=== PATIENT | male | born 1985 | race Caucasian/White ===

== ENCOUNTER 2017-02-04 19:32 | Emergency (ER) | payer BC, OTHER ==
[~2017-02-04] VITALS: Ht 190.5 cm; Wt 170.1 kg
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
[2017-02-04] MEDS ORDERED: FENO160T12 (19:55)
[2017-02-04] MEDS ORDERED: ARIP2TAB11 (19:55)
[2017-02-04] MEDS ORDERED: METF500T8 (19:55)
[2017-02-04] MEDS ORDERED: PHENTERMINE (19:55)
[2017-02-04] MEDS ORDERED: LAMO150T (19:55)
[2017-02-04] MEDS ORDERED: TRAZODONE (19:55)
[2017-02-04] MEDS ORDERED: LITH600C (19:55)
[2017-02-04] MEDS ORDERED: ALLO100T (19:55)
[2017-02-04] MEDS ORDERED: LEVO25TA5 (19:55)
[2017-02-04] MEDS ORDERED: TRAZ100T92 (19:55)
--- NOTE | 2017-02-04 20:12 | Diagnostic Imaging Report ---
INDICATION: Injury to right ankle AP, oblique, and lateral views of the right ankle obtained at 8:14 p.m. There is an acute comminuted fracture of the medial malleolus of the distal tibia with vertical and horizontal components. There is a fracture of the posterior malleolus of the distal tibia as well. There is no significant malalignment. A fracture is visualized in the fibular shaft, partially seen on this study. There is plantar and posterior calcaneal spurring. IMPRESSION: Comminuted fracture of the medial malleolus of the distal tibia. There is also a posterior malleolar fracture of the distal tibia. There is a distal fibular shaft fracture. There is no dislocation. Dictated by: Dictated on workstation # [id number]
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
[2017-02-04] MEDS ORDERED: oxyCODONE/APAP 5/325MG (PERCOCET 5) TABLET PO ONE (20:15)
--- NOTE | 2017-02-04 21:53 | Diagnostic Imaging Report ---
INDICATION: Right ankle fractures. EXAMINATION: CT of the right ankle was obtained with axial slices, without IV contrast, and sagittal and coronal reconstructions. FINDINGS: There is a comminuted fracture of the mid fibular shaft without significant malalignment. The distal fibula appears intact. There is a comminuted fracture of the distal tibia with horizontal and vertical components involving the medial malleolus, as well as a posterior malleolar fracture. The talus appears intact. There appear to be some small bony fragments in the ankle joint, posteriorly. There is an accessory ossicle posterior to the talus. IMPRESSION: Mid shaft comminuted fibular fracture without significant angulation. Comminuted fracture with vertical and horizontal components involving the medial malleolus of the distal tibia. There is a posterior malleolar fracture. There appear to be small bony fragments in the posterior joint space. Dictated by: Dictated on workstation # [id number]
[2017-02-04] MEDS ORDERED: OXYC-197 PO (22:12)
[2017-02-04] MEDS ORDERED: RX-OXYCODONE/APAP 5-325 MG #4 TAB PK PO ONE (22:22)
[2017-02-04] MEDS ORDERED: RX-OXYCODONE/APAP 5-325 MG #4 TAB PK PO PRN (22:30)
[2017-02-04 22:34] VITALS: BP 134/63
== END 2017-02-04 22:34 | disposition home or self-care (01) ==
LOC: ER 19:36
DX: S82.451A Displaced comminuted fracture of shaft of right fibula, initial encounter for closed fracture (principal); S82.51XA Displaced fracture of medial malleolus of right tibia, initial encounter for closed fracture; E11.9 Type 2 diabetes mellitus without complications; Z79.84 Long term (current) use of oral hypoglycemic drugs; Z79.899 Other long term (current) drug therapy; X50.1XXA Overexertion from prolonged static or awkward postures, initial encounter; Y93.51 Activity, roller skating (inline) and skateboarding; Y99.8 Other external cause status
CPT/HCPCS: 29515; 73590; 73610; 73700